=== PATIENT | male | born 1975 ===

== ENCOUNTER 2017-08-29 09:05 | Observation (INO) | payer MEDICAID ==
[2017-08-29 09:10] VITALS: BMI 32.5
[2017-08-29] MEDS ORDERED: Sodium Chloride 0.9% 1,000 ML IV STA (09:19)
--- NOTE | 2017-08-29 09:32 | ED PDOC ---
Syncope/Near Syncope/Dizziness Time Seen by Provider: 08/29/17 09:07 Chief Complaint (Nursing): Trauma Chief Complaint (Provider): Syncope History Per: Patient History/Exam Limitations: no limitations Onset/Duration Of Symptoms: Hrs (SLPS) Current Symptoms Are (Timing): Still Present Number Of Syncopal Episodes: 2 Activity At Onset Of Symptoms: Standing Associated Symptoms Preceding Syncopal Episode: No Predromal Symptoms (Sudden Onset) Seizure Or Post-ictal Symptoms: None Possible Causative Factor(s): New Medications Fall Associated With With Symptoms: Positive Injury Additional Complaint(s): Odell Marie is a 42 year old male, with a past medical history of anxiety, depression, BPH and pre-diabetes, who was brought to the emergency department via EMS for evaluation of fall injuries and dizziness s/p syncopal episodes prior to arrival. Patient reports he was seen yesterday by MD for insomnia and was prescribed Trazodone. Patient states he took the medicine last night but was not able to fall asleep until 7am. He woke up a couple of hours after and was having a conversation outside with someone when he suddenly fainted injuring his lips and right knee. Patient reports he got up and went inside to his mother when he suddenly fainted again. Patient states he felt normal before syncopal episode. He also reports a headache but is unsure if its from the medication or fall. He denies any fever, chills, shortness of breath, vision changes, chest pain, abdominal pain, vomit, diarrhea, back pain, numbness or tingling, weakness or other medical complaints. PMD: Lazara Batres Currently seeing: Dr. Ayad William Past Medical History Reviewed: Historical Data, Nursing Documentation, Vital Signs Vital Signs: Last Vital Signs Temp 97.1 F L 08/29/17 09:09 Pulse 76 08/29/17 09:09 Resp 17 08/29/17 09:19 BP 117/73 08/29/17 09:09 Pulse Ox 96 08/29/17 09:09 - Medical History PMH: Anxiety, Benign Prostatic Hyperplasia, Depression, Diabetes (pre-DM) - Surgical History Surgical History: No Surg Hx - Family History Family History: States: Unknown Family Hx - Social History Current smoker - smoking cessation education provided: No Alcohol: None Drugs: Denies - Allergies Allergies/Adverse Reactions: Allergies Allergy/AdvReac Type Severity Reaction Status Date / Time No Known Allergies Allergy Verified 08/29/17 09:14 Review of Systems ROS Statement: Except As Marked, All Systems Reviewed And Found Negative Constitutional: Negative for: Fever, Chills ENT: Positive for: Other (lip injuries) Cardiovascular: Negative for: Chest Pain Respiratory: Negative for: Shortness of Breath Gastrointestinal: Negative for: Vomiting, Abdominal Pain, Diarrhea Musculoskeletal: Positive for: Leg Pain (right knee injury). Negative for: Back Pain Neurological: Positive for: Headache, Dizziness. Negative for: Weakness, Numbness (tingling) Physical Exam - Reviewed Nursing Documentation Reviewed: Yes Vital Signs Reviewed: Yes - Physical Exam Appears: Positive for: Non-toxic Head Exam: Positive for: ATRAUMATIC, NORMOCEPHALIC Skin: Positive for: Normal Color, Warm, Dry Eye Exam: Positive for: Normal appearance, EOMI, PERRL ENT: Positive for: Other (Multiple missing teeth. Chipped fake teeth frontal left. Upper and lower lip abrasions at middle.) Neck: Positive for: Painless ROM, Supple Cardiovascular/Chest: Positive for: Regular Rate, Rhythm. Negative for: Murmur Respiratory: Positive for: Normal Breath Sounds. Negative for: Respiratory Distress Gastrointestinal/Abdominal: Positive for: Normal Exam, Soft. Negative for: Tenderness, Guarding, Rebound Back: Positive for: Normal Inspection. Negative for: L CVA Tenderness, R CVA Tenderness, Vertebral Tenderness Extremity: Positive for: Normal ROM (upper and lower extremities), Other ( anterior right knee abrasion. ). Negative for: Pedal Edema, Deformity (or laxity to right knee), Swelling (right knee) Neurologic/Psych: Positive for: Alert, tiller worker II-XII, Oriented. Negative for: Motor/Sensory Deficits, Aphasia, Facial Droop - Laboratory Results Result Diagrams: 08/29/17 09:40 08/29/17 09:40 Interpretation Of Abn Labs: no acute - ECG ECG: Positive for: Interpreted By Me, Viewed By Me ECG Rhythm: Positive for: Normal QRS, Normal ST Segment, Sinus Rhythm O2 Sat by Pulse Oximetry: 96 (RA) Pulse Ox Interpretation: Normal - Radiology X-Ray: Read By Radiologist X-Ray Interpretation: Fracture (possible fx knee) - CT Scan/US ct Other Rad Studies (CT/US): Read By Radiologist Other Rad Interpretation: no acute - Progress ED Course And Treament: 1223: Stable. Spoke with [facility] resident. Will admit for multiple syncope episodes. Will ct knee for further evaluation of possible fx. Medical Decision Making Medical Decision Making: Time: 09:07 Initial Impression: fall injuries s/p syncope Initial Plan: --Cervical spine w/o contrast [CT] --Head w/o contrast [CT] --Maxillofacial w/o contrast [CT] --EKG --CMP --Troponin I --CBC w/ differential --PTT --PT --Knee 4 or more views Bi [RAD] --Tylenol 325mg tab 650 mg PO --Sodium Chloride 1,000 ml IV 1,000 mls/hr --Reevaluation 10:[address] FINDINGS: HEMORRHAGE: No intracranial hemorrhage. BRAIN: No mass effect or edema. No atrophy or chronic microvascular ischemic changes. VENTRICLES: Unremarkable. No hydrocephalus. CALVARIUM: Unremarkable. PARANASAL SINUSES: Unremarkable as visualized. No significant inflammatory changes. MASTOID AIR CELLS: Unremarkable as visualized. No inflammatory changes. OTHER FINDINGS: None. IMPRESSION: No acute intracranial hemorrhage. 10:37 Knee X-Ray FINDINGS: There is a sclerotic linear density appreciated at the medial to the inferior to the medial tibial plateau which may reflect chronic impacted fracture though this is not definite. The etiology here is unclear. This could be an acute finding if the patient complains of asymmetric pain in this area. Clinically correlate further. No subluxation or dislocation appreciated. No destructive bony lesion bilaterally. Local soft tissues appear unremarkable bilaterally and there is no evidence to suggest suprasellar bursa effusion either knee. IMPRESSION: Sclerotic density medial tibial plateau within the metaphysis/ epiphysis region of uncertain origin. Consider possible chronic healed fracture no acute fractures not completely excluded. Clinically correlate further. MRI can be performed if clinically warranted. 11:[address] FINDINGS: NASAL BONES: Unremarkable. No evidence of acute nasal bone fractures. There is very mild rightward deviation of the nasal septum likely due to asymmetric prominence of the left inferior turbinate compared to the right side. There is also small site rc bullosa. ORBITS: Orbits and contents unremarkable. Globes intact and lenses appropriately located. There are no retrobulbar masses or collections. PARANASAL SINUSES/ MASTOIDS: No evidence of acute or significant chronic sinusitis. MAXILLA: Unremarkable. MANDIBLE/ TEMPOROMANDIBULAR JOINTS: Unremarkable. SKULL BASE: Unremarkable. TEMPORAL BONES: Middle ears and mastoid grossly unremarkable. OTHER FINDINGS: None. IMPRESSION: Unremarkable non contrast enhanced CT of the maxillofacial bones. 11:[address] FINDINGS: VERTEBRAE: No fracture. Normal alignment. No destructive bony lesion. DISCS/SPINAL CANAL/NEURAL FORAMINA: Disc space heights are relatively maintained small marginal anterior and tiny posterior osteophytes are seen at several levels. At the C5-C6 level, there is small central and bilateral disc bulge flattens the ventral surface of the thecal sac though does not cause significant canal compromise. Exit foramina adequate. . There is also a small linear calcification along the at anterior margin of the annulus at this level. At the C6-C7 level, there is adequate disc height. Small posterior osteophytic ridge disc bulge complex slightly asymmetrically more prominent on the right compared the left. Central canal appears adequate. Exit foramina also adequate the right and marginal to adequate on the left. . The remaining levels demonstrate no evidence of disc herniation or significant disc bulge. Central canal and exit foramina adequate. Note made of small of posterior the near the spinous process ease of the C4 and C7 segments. PARASPINAL SOFT TISSUES: Unremarkable. OTHER FINDINGS: None. IMPRESSION: No evidence of acute fractures. Minor degenerative spondylosis without significant canal stenosis. ----- Scribe Attestation: Documented by Milton Parkinson, acting as a scribe for Misael Louie MD. Provider Scribe Attestation: All medical record entries made by the Scribe were at my direction and personally dictated by me. I have reviewed the chart and agree that the record accurately reflects my personal performance of the history, physical exam, medical decision making, and the department course for this patient. I have also personally directed, reviewed, and agree with the discharge instructions and disposition. Disposition - Clinical Impression Clinical Impression: Syncope, Knee injury - Patient ED Disposition Is Patient to be Admitted: Yes Counseled Patient/Family Regarding: Studies Performed, Diagnosis - Disposition Disposition Time: 11:24 Condition: FAIR - Pt Status Changed To: Hospital Disposition Of: Observation - POA Present On Arrival: Falls Or Trauma
[2017-08-29 10:05] LABS: BASO # 0.1 K/uL (0.0-0.2); BASO % 0.7 % (0.0-2.0); EOS # 0.3 K/uL (0.0-0.7); EOS % 4.2 % (0.0-4.0); HEMOGLOBIN 13.8 g/dL (12.0-18.0); LYMPH # 2.1 K/uL (1.0-4.3); LYMPH % 25.8 % (20.0-40.0); MEAN CELL VOLUME 83.8 fl (80.0-94.0); MEAN CORPUSCULAR HEMOGLOBIN 27.4 pg (27.0-31.0); MEAN CORPUSCULAR HGB CONC 32.7 g/dL (33.0-37.0); MEAN PLATELET VOLUME 9.1 fl (7.2-11.7); MONO # 0.7 K/uL (0.0-0.8); MONO % 8.3 % (0.0-10.0); RBC 5.03 Mil/uL (4.40-5.90); RED CELL DISTRIBUTION WIDTH 14.7 % (11.5-14.5); WHITE BLOOD COUNT 8.2 K/uL (4.8-10.8)
[2017-08-29 10:06] LABS: ALB/GLOB RATIO 1.3 (1.0-2.1); ALBUMIN 4.4 g/dL (3.5-5.0); ALT/SGPT 35 U/L (21-72); AST/SGOT 24 U/L (17-59); BLOOD UREA NITROGEN 11 mg/dl (9-20); CALCIUM 9.4 mg/dL (8.4-10.2); GFR AFRICAN-AMERICAN > 60; GFR NON-AFRICAN AMERICAN > 60
[2017-08-29 10:11] LABS: INR 1.2 (0.9-1.2); PARTIAL THROMBOPLASTIN TIME 30.3 Seconds (25.6-37.1); PROTHROMBIN TIME 13.3 Seconds (9.8-13.1)
--- NOTE | 2017-08-29 10:21 | CT ---
PROCEDURE: CT HEAD WITHOUT CONTRAST. HISTORY: Headache. . COMPARISON: None available. TECHNIQUE: Axial computed tomography images were obtained through the head/brain without intravenous contrast. Radiation dose: Total exam DLP = 839.26 mGy-cm. This CT exam was performed using one or more of the following dose reduction techniques: Automated exposure control, adjustment of the mA and/or kV according to patient size, and/or use of iterative reconstruction technique. FINDINGS: HEMORRHAGE: No intracranial hemorrhage. BRAIN: No mass effect or edema. No atrophy or chronic microvascular ischemic changes. VENTRICLES: Unremarkable. No hydrocephalus. CALVARIUM: Unremarkable. PARANASAL SINUSES: Unremarkable as visualized. No significant inflammatory changes. MASTOID AIR CELLS: Unremarkable as visualized. No inflammatory changes. OTHER FINDINGS: None. IMPRESSION: No acute intracranial hemorrhage.
--- NOTE | 2017-08-29 10:39 | RAD ---
PROCEDURE: Bilateral Knee Radiographs HISTORY: pain COMPARISON: None available. TECHNIQUE: AP lateral and oblique views of the bilateral knees have been submitted including sunrise views. FINDINGS: There is a sclerotic linear density appreciated at the medial to the inferior to the medial tibial plateau which may reflect chronic impacted fracture though this is not definite. The etiology here is unclear. This could be an acute finding if the patient complains of asymmetric pain in this area. Clinically correlate further. No subluxation or dislocation appreciated. No destructive bony lesion bilaterally. Local soft tissues appear unremarkable bilaterally and there is no evidence to suggest suprasellar bursa effusion either knee. IMPRESSION: Sclerotic density medial tibial plateau within the metaphysis/ epiphysis region of uncertain origin. Consider possible chronic healed fracture no acute fractures not completely excluded. Clinically correlate further. MRI can be performed if clinically warranted.
--- NOTE | 2017-08-29 11:03 | CT ---
PROCEDURE: CT MAXILLOFACIAL BONES WITHOUT CONTRAST HISTORY: Facial pain COMPARISON: Comparison made with concurrent CT scan brain TECHNIQUE: Contiguous axial CT images of the maxillofacial bones were obtained. Coronal and sagittal reformats were generated. Radiation dose: Total exam DLP = 1370.76 mGy-cm. This CT exam was performed using one or more of the following dose reduction techniques: Automated exposure control, adjustment of the mA and/or kV according to patient size, and/or use of iterative reconstruction technique. FINDINGS: NASAL BONES: Unremarkable. No evidence of acute nasal bone fractures. There is very mild rightward deviation of the nasal septum likely due to asymmetric prominence of the left inferior turbinate compared to the right side. There is also small site rc bullosa. ORBITS: Orbits and contents unremarkable. Globes intact and lenses appropriately located. There are no retrobulbar masses or collections. PARANASAL SINUSES/ MASTOIDS: No evidence of acute or significant chronic sinusitis. MAXILLA: Unremarkable. MANDIBLE/ TEMPOROMANDIBULAR JOINTS: Unremarkable. SKULL BASE: Unremarkable. TEMPORAL BONES: Middle ears and mastoid grossly unremarkable. OTHER FINDINGS: None. IMPRESSION: Unremarkable non contrast enhanced CT of the maxillofacial bones.
--- NOTE | 2017-08-29 11:13 | CT ---
PROCEDURE: CT Cervical Spine without contrast HISTORY: Neck pain COMPARISON: None available. TECHNIQUE: Axial computed tomography images were obtained of the cervical spine without the use of intravenous contrast. Coronal and sagittal reformatted images were created and reviewed. Radiation dose: Total exam DLP = 1370.76 mGy-cm. This CT exam was performed using one or more of the following dose reduction techniques: Automated exposure control, adjustment of the mA and/or kV according to patient size, and/or use of iterative reconstruction technique. FINDINGS: VERTEBRAE: No fracture. Normal alignment. No destructive bony lesion. DISCS/SPINAL CANAL/NEURAL FORAMINA: Disc space heights are relatively maintained small marginal anterior and tiny posterior osteophytes are seen at several levels. At the C5-C6 level, there is small central and bilateral disc bulge flattens the ventral surface of the thecal sac though does not cause significant canal compromise. Exit foramina adequate. . There is also a small linear calcification along the at anterior margin of the annulus at this level. At the C6-C7 level, there is adequate disc height. Small posterior osteophytic ridge disc bulge complex slightly asymmetrically more prominent on the right compared the left. Central canal appears adequate. Exit foramina also adequate the right and marginal to adequate on the left. . The remaining levels demonstrate no evidence of disc herniation or significant disc bulge. Central canal and exit foramina adequate. Note made of small of posterior the near the spinous process ease of the C4 and C7 segments. PARASPINAL SOFT TISSUES: Unremarkable. OTHER FINDINGS: None. IMPRESSION: No evidence of acute fractures. Minor degenerative spondylosis without significant canal stenosis.
[2017-08-29] MEDS ORDERED: Naproxen 500 MG TAB PO PRN (13:41)
--- NOTE | 2017-08-29 13:57 | CARD ---
APPROVED REPORT EKG Measurement Heart [id number] [place] [id number] <Conclusion> Normal sinus rhythm Normal ECG
--- NOTE | 2017-08-29 13:59 | CP.PCM.HP ---
Addendum entered and electronically signed by Crista Chiu MD 08/29/17 17:26: Smoking abuse -nicotine patch Original Note: <Crista Chiu - Last Filed: 08/29/17 16:14> History of Present Illness - History of Present Illness History of Present Illness: CC: "I passed out" HPI: 42 YO Male with PMHx of depression, anxiety and BPH presents to [facility] ED after syncopal episode. Pt states that he was seen by Srini De Luna yesterday after experiencing 2 weeks of insomnia (2-3 hrs of sleep a day). Pt was prescribed Trazadone 50mg HS, which he took (around 11PM) along with the tamsulosin and fell asleep around 7AM this morning. Around 8AM, pt was suddenly woken up by his father to answer the doorbell. Pt woke up, walked to his door, was talking to the mailman when he suddenly passed out. Episode was witnessed, pt fall facing forward, hit his face and broke his artificial teeth. 20 mins after the first episode, pt was talking to his mother when he passed out and found himself sitting. These episodes lasted a few seconds. No tremors in upper or lower extremities noted, no urinary or fecal incontinence, no eye rolling, no tongue biting and was not post-ictal. No similar episodes in the past. Denies chest pain, dyspnea, palpitations, n/v/d/c, dysuria, urinary frequency, chills, fever, weight loss/gain. PMD: [facility]- last visit with Colin De Luna on 08/28/17 PMH: depression, anxiety and BPH SurgH: R ankle surgery, cholecystectomy SH: 25 year smoking hx, quit 4 days ago and restarted 2 weeks ago due to anxiety FH: hx of HTN and DM both mother and father's side of family; hx of lung cancer. Allergies: NKDA Meds: Sertraline HCl 50 MG Tablet 1.5 tablets Orally Once a day BusPIRone HCl 5 MG Tablet 1 tablet Orally Three times a day Tamsulosin HCl 0.4 MG Capsule 1 capsule Orally Once a day Naproxen 500 BID ED Course: Vitals: T98.4, BP123/55, HR62, RR18, O2 98% in RA Labs: 8.2>13.8/42.2<233 141/3.7, 102/26, 11/10.6< 108 PT/INR/PTT 13.3/1.2/30.3 Trops x 1 neg Imaging: EKG: Normal sinus rhythm with rate of 69, QTc 411, no acute ST changes CT head: no acute intracranial findings CT spine: no acute findings Maxifaical CT: no acute findings R Knee XR: chronic healed fracture, acute fx not completely excluded Lower extremity CT R pending Meds: tylenol 650mg, NS 1L Present on Admission - Present on Admission Any Indicators Present on Admission: No Review of Systems - Constitutional Constitutional: absent: Chills, Headache, Weight Gain, Weight Loss - EENT Eyes: absent: Blurred Vision Additional comments: mouth pain - Cardiovascular Cardiovascular: absent: Chest Pain, Irregular Heart Rhythm - Respiratory Respiratory: absent: Cough, Dyspnea - Gastrointestinal Gastrointestinal: absent: Abdominal Pain, Constipation, Cramping, Diarrhea - Genitourinary Genitourinary: absent: Change in Urinary Stream, Difficulty Urinating, Dysuria - Musculoskeletal Additional comments: R knee pain - Neurological Neurological: Syncope (x 2). absent: Headaches, Tremor, Vertigo - Psychiatric Psychiatric: Anxiety, Depression Past Patient History - Past Social History Smoking Status: Heavy Smoker > 10 Cigarettes Daily Alcohol: None Drugs: Denies Home Situation {Lives}: With Family - GENITOURINARY/GYNECOLOGICAL Hx Genitourinary Disorders: Yes Other/Comment: enlarged prostate - PSYCHIATRIC Hx Anxiety: Yes Hx Depression: Yes - SURGICAL HISTORY Hx Surgeries: No - ANESTHESIA Hx Anesthesia: No Meds Allergies/Adverse Reactions: Allergies Allergy/AdvReac Type Severity Reaction Status Date / Time No Known Allergies Allergy Verified 08/29/17 09:14 Physical Exam - Constitutional Appears: No Acute Distress, Other (abrasions in the jodee-oral area) - Head Exam Head Exam: NORMAL INSPECTION Additional comments: Dentures in place; upper incisors L side teeth are broken (2) - Eye Exam Eye Exam: EOMI, Normal appearance, PERRL - ENT Exam ENT Exam: Mucous Membranes Moist - Neck Exam Neck exam: Positive for: Full Rom - Respiratory Exam Respiratory Exam: Clear to Auscultation Bilateral, NORMAL BREATHING PATTERN. absent: Rhonchi, Wheezes - Cardiovascular Exam Cardiovascular Exam: REGULAR RHYTHM, +S1, +S2 Additional comments: Orth stats (R side) BP 104/68 Sitting BP 110/74 Supine BP 104/70 Standing - GI/Abdominal Exam GI & Abdominal Exam: Normal Bowel Sounds, Soft. absent: Distended, Tenderness Additional comments: old geoffrey scar, well healed - Extremities Exam Extremities exam: Positive for: full ROM, normal inspection. Negative for: calf tenderness, pedal edema Additional comments: Small abrasion in the R knee Old healed scar in R ankle - Back Exam Back exam: NORMAL INSPECTION - Neurological Exam Neurological exam: Alert, CN II-XII Intact, Normal Gait, Oriented x3 Additional comments: Sensory motor intact b/l in the upper and lower extremities strength intact in the upper and lower extremities - Psychiatric Exam Psychiatric exam: Anxious Results - Vital Signs Recent Vital Signs: Last Vital Signs Temp 97.1 F L 08/29/17 09:09 Pulse 76 08/29/17 09:09 Resp 17 08/29/17 09:19 BP 117/73 08/29/17 09:09 Pulse Ox 96 08/29/17 12:25 - Labs Result Diagrams: 08/29/17 09:40 08/29/17 09:40 Labs: Laboratory Results - last 24 hr 08/29/17 08/29/17 08/29/17 09:40 09:40 09:40 WBC 8.2 RBC 5.03 Hgb 13.8 Hct 42.2 MCV 83.8 MCH 27.4 MCHC 32.7 L RDW 14.7 H Plt Count 233 MPV 9.1 Neut % (Auto) 61.0 Lymph % (Auto) 25.8 Coles % (Auto) 8.3 Eos % (Auto) 4.2 H Baso % (Auto) 0.7 Neut # (Auto) 5.0 Lymph # (Auto) 2.1 Coles # (Auto) 0.7 Eos # (Auto) 0.3 Baso # (Auto) 0.1 PT 13.3 H INR 1.2 APTT 30.3 Sodium 141 Potassium 3.7 Chloride 102 Carbon Dioxide 26 Anion Gap 17 BUN 11 Creatinine 0.6 L Est GFR ( Amer) > 60 Est GFR (Non-Af Amer) > 60 Random Glucose 108 Calcium 9.4 Total Bilirubin 1.3 AST 24 ALT 35 Alkaline Phosphatase 67 Troponin I < 0.0120 Total Protein 7.8 Albumin 4.4 Globulin 3.4 Albumin/Globulin Ratio 1.3 Assessment & Plan - Assessment and Plan (Free Text) Assessment: Assessment/Plan: 42 YO Male with PMHx of depression, anxiety and BPH is admitted for syncopal episodes. Syncope -likely iatrogenic due to new med; with components of sleep depravation -2/2 to Trazadone, and flomax both which are known to cause hypotension -seizures, cardiovascular origin less likely -EKG wnl, trops neg -CT head no acute findings -UDS pending -cont to monitor in telemetry, neuro checks R knee pain -chronic, stable x 1 month -no hx of trauma per pt -c/w naproxen -XR of knee; R Knee XR: chronic healed fracture, acute fx not completely excluded -CT of RLE pending -outpatient referral to PT and ortho given last visit with PMD BPH -chronic, stable -will hold Tamsulosin for now Depression/Anxiety -chronic -c/w home meds Dvt Prophyx -Lovenox SC <Dianne Valverde - Last Filed: 08/30/17 08:04> Results - Vital Signs Recent Vital Signs: Last Vital Signs Temp 98.5 F 08/30/17 05:11 Pulse 53 L 08/30/17 05:11 Resp 18 08/30/17 05:11 BP 102/63 08/30/17 05:11 Pulse Ox 97 08/30/17 05:11 - Labs Result Diagrams: 08/29/17 09:40 08/29/17 09:40 Labs: Laboratory Results - last 24 hr 08/29/17 08/29/17 08/29/17 09:40 09:40 09:40 WBC 8.2 RBC 5.03 Hgb 13.8 Hct 42.2 MCV 83.8 MCH 27.4 MCHC 32.7 L RDW 14.7 H Plt Count 233 MPV 9.1 Neut % (Auto) 61.0 Lymph % (Auto) 25.8 Coles % (Auto) 8.3 Eos % (Auto) 4.2 H Baso % (Auto) 0.7 Neut # (Auto) 5.0 Lymph # (Auto) 2.1 Coles # (Auto) 0.7 Eos # (Auto) 0.3 Baso # (Auto) 0.1 PT 13.3 H INR 1.2 APTT 30.3 Sodium 141 Potassium 3.7 Chloride 102 Carbon Dioxide 26 Anion Gap 17 BUN 11 Creatinine 0.6 L Est GFR ( Amer) > 60 Est GFR (Non-Af Amer) > 60 Random Glucose 108 Calcium 9.4 Total Bilirubin 1.3 AST 24 ALT 35 Alkaline Phosphatase 67 Troponin I < 0.0120 Total Protein 7.8 Albumin 4.4 Globulin 3.4 Albumin/Globulin Ratio 1.3 Urine Opiates Screen Urine Methadone Screen Ur Barbiturates Screen Ur Phencyclidine Scrn Ur Amphetamines Screen U Benzodiazepines Scrn U Oth Cocaine Metabols U Cannabinoids Screen 08/29/17 17:10 WBC RBC Hgb Hct MCV MCH MCHC RDW Plt Count MPV Neut % (Auto) Lymph % (Auto) Coles % (Auto) Eos % (Auto) Baso % (Auto) Neut # (Auto) Lymph # (Auto) Coles # (Auto) Eos # (Auto) Baso # (Auto) PT INR APTT Sodium Potassium Chloride Carbon Dioxide Anion Gap BUN Creatinine Est GFR ( Amer) Est GFR (Non-Af Amer) Random Glucose Calcium Total Bilirubin AST ALT Alkaline Phosphatase Troponin I Total Protein Albumin Globulin Albumin/Globulin Ratio Urine Opiates Screen Negative Urine Methadone Screen Negative Ur Barbiturates Screen Negative Ur Phencyclidine Scrn Negative Ur Amphetamines Screen Negative U Benzodiazepines Scrn Negative U Oth Cocaine Metabols Negative U Cannabinoids Screen Negative Attending/Attestation - Attestation I have personally seen and examined this patient.: Yes I have fully participated in the care of the patient.: Yes I have reviewed all pertinent clinical information: Yes
--- NOTE | 2017-08-29 16:01 | CT ---
PROCEDURE: RIGHT KNEE CT WITHOUT CONTRAST HISTORY: pain and possible fx on x-ray COMPARISON: Bilateral knee radiographs 08/21/2017. TECHNIQUE: A volumetric CT acquisition was performed through the right knee with multiplanar reformatted datasets provided by separate series FINDINGS: There is stress fracture of the medial epiphysis medially inferior to the level of the medial right tibial plateau. Cortical discontinuity is appreciate the medial margins of the stress fracture. Surrounding osseous elements are unremarkable around this fracture with no articular component related. No subluxation or dislocation appreciated. No prominent joint effusion or suprapatellar bursa effusion appreciable. Anterior and posterior muscle compartments appear unremarkable as imaged. No subluxation or dislocation. IMPRESSION: Stress fracture medial proximal right tibia, non articular. The findings concordant with radiographic finding at the the right knee radiographic images 08/29/2017.
[2017-08-29] MEDS: Naproxen 500 MG TAB PO PRN (16:27)
[2017-08-29 17:54] LABS: BARBITURATES, UR NEGATIVE (NEGATIVE); BENZODIAZEPINES, UR NEGATIVE (NEGATIVE); OPIATES, UR NEGATIVE (NEGATIVE); PHENCYCLIDINE, UR NEGATIVE (NEGATIVE)
[2017-08-30 00:10] VITALS: RESP 18
[2017-08-30] MEDS: Naproxen 500 MG TAB PO PRN (08:33)
[2017-08-30] MEDS ORDERED: Enoxaparin 40 mg Syringe SC SCH (09:00)
--- NOTE | 2017-08-30 10:45 | CP.PCM.DIS ---
<Crista Chiu - Last Filed: 08/30/17 14:57> Provider - Provider Date of Admission: 08/29/17 12:25 Attending physician: Esme Seals MD Time Spent in preparation of Discharge (in minutes): 30 Diagnosis - Discharge Diagnosis (1) Syncope Status: Acute (2) Knee injury Status: Chronic Hospital Course - Lab Results Lab Results: Most Recent Lab Values WBC 8.2 K/uL (4.8-10.8) 08/29/17 09:40 RBC 5.03 Mil/uL (4.40-5.90) 08/29/17 09:40 Hgb 13.8 g/dL (12.0-18.0) 08/29/17 09:40 Hct 42.2 % (35.0-51.0) 08/29/17 09:40 MCV 83.8 fl (80.0-94.0) 08/29/17 09:40 MCH 27.4 pg (27.0-31.0) 08/29/17 09:40 MCHC 32.7 g/dL (33.0-37.0) L 08/29/17 09:40 RDW 14.7 % (11.5-14.5) H 08/29/17 09:40 Plt Count 233 K/uL (130-400) 08/29/17 09:40 MPV 9.1 fl (7.2-11.7) 08/29/17 09:40 Neut % (Auto) 61.0 % (50.0-75.0) 08/29/17 09:40 Lymph % (Auto) 25.8 % (20.0-40.0) 08/29/17 09:40 [place] % (Auto) 8.3 % (0.0-10.0) 08/29/17 09:40 Eos % (Auto) 4.2 % (0.0-4.0) H 08/29/17 09:40 Baso % (Auto) 0.7 % (0.0-2.0) 08/29/17 09:40 Neut # (Auto) 5.0 K/uL (1.8-7.0) 08/29/17 09:40 Lymph # (Auto) 2.1 K/uL (1.0-4.3) 08/29/17 09:40 [place] # (Auto) 0.7 K/uL (0.0-0.8) 08/29/17 09:40 Eos # (Auto) 0.3 K/uL (0.0-0.7) 08/29/17 09:40 Baso # (Auto) 0.1 K/uL (0.0-0.2) 08/29/17 09:40 PT 13.3 Seconds (9.8-13.1) H 08/29/17 09:40 INR 1.2 (0.9-1.2) 08/29/17 09:40 APTT 30.3 Seconds (25.6-37.1) 08/29/17 09:40 Sodium 141 mmol/l (132-148) 08/29/17 09:40 Potassium 3.7 MMOL/L (3.6-5.0) 08/29/17 09:40 Chloride 102 mmol/L (98-107) 08/29/17 09:40 Carbon Dioxide 26 mmol/L (22-30) 08/29/17 09:40 Anion Gap 17 (10-20) 08/29/17 09:40 BUN 11 mg/dl (9-20) 08/29/17 09:40 Creatinine 0.6 mg/dl (0.8-1.5) L 08/29/17 09:40 Est GFR ( Amer) > 60 08/29/17 09:40 Est GFR (Non-Af Amer) > 60 08/29/17 09:40 Random Glucose 108 mg/dL (75-110) 08/29/17 09:40 Calcium 9.4 mg/dL (8.4-10.2) 08/29/17 09:40 Total Bilirubin 1.3 mg/dl (0.2-1.3) 08/29/17 09:40 AST 24 U/L (17-59) 08/29/17 09:40 ALT 35 U/L (21-72) 08/29/17 09:40 Alkaline Phosphatase 67 U/L (38-126) 08/29/17 09:40 Troponin I < 0.0120 ng/mL (0.00-0.120) 08/29/17 09:40 Total Protein 7.8 G/DL (6.3-8.2) 08/29/17 09:40 Albumin 4.4 g/dL (3.5-5.0) 08/29/17 09:40 Globulin 3.4 gm/dL (2.2-3.9) 08/29/17 09:40 Albumin/Globulin Ratio 1.3 (1.0-2.1) 08/29/17 09:40 Urine Opiates Screen Negative (NEGATIVE) 08/29/17 17:10 Urine Methadone Screen Negative (NEGATIVE) 08/29/17 17:10 Ur Barbiturates Screen Negative (NEGATIVE) 08/29/17 17:10 Ur Phencyclidine Scrn Negative (NEGATIVE) 08/29/17 17:10 Ur Amphetamines Screen Negative (NEGATIVE) 08/29/17 17:10 U Benzodiazepines Scrn Negative (NEGATIVE) 08/29/17 17:10 U Oth Cocaine Metabols Negative (NEGATIVE) 08/29/17 17:10 U Cannabinoids Screen Negative (NEGATIVE) 08/29/17 17:10 - Hospital Course Hospital Course: 42 YO Male with PMHx of depression, anxiety and BPH is admitted for syncopal episodes and R knee pain. Pt had 2x episode of syncope after starting a new medication, Trazadone. Medication was discontinued, and labs and imaging has all been negative for any acute findings. Pt was kept in tele monitoring overnight and no cardiac events were noted. Additionally, per pt R knee pain has been chronic, x 3 months, with no hx of trauma. Pt ambulating, no edema or erythema on knee and has apt with Ortho on 09/13/17 and has rx for outpatient PT. Will d/c pt home with follow up win [facility] on 09/16/17. Meds: STOP Trazadone 50mg HS Discharge Exam - Head Exam Head Exam: NORMAL INSPECTION - Eye Exam Eye Exam: EOMI, Normal appearance - ENT Exam ENT Exam: Mucous Membranes Moist - Respiratory Exam Respiratory Exam: Clear to PA & Lateral, NORMAL BREATHING PATTERN. absent: Wheezes - Cardiovascular Exam Cardiovascular Exam: REGULAR RHYTHM, +S1, +S2 - GI/Abdominal Exam GI & Abdominal Exam: Normal Bowel Sounds, Soft. absent: Tenderness - Extremities Exam Extremities exam: normal inspection Additional comments: Full ROM of the RLE and LLE There is no associated swelling or erythema in the RLE No pain on palpation of R knee - Back Exam Back exam: NORMAL INSPECTION - Neurological Exam Neurological exam: Alert, CN II-XII Intact, Oriented x3 - Psychiatric Exam Psychiatric exam: Normal Affect, Normal Mood - Skin Skin Exam: Dry, Intact Discharge Plan - Follow Up Plan Condition: FAIR Disposition: HOME/ ROUTINE Patient education suggested?: Yes Instructions: Syncope (Fainting) (DC), Syncope (DC), Syncope (GEN) Additional Instructions: Follow up [facility] on 09/16/17 @1:00PM Please follow up with Srini De Luna in 1 week Follow up with ortho on 09/13/17 and PT <Dianne Valverde - Last Filed: 08/31/17 09:02> Provider - Provider Date of Admission: 08/29/17 12:25 Attending physician: Esme Seals MD Hospital Course - Lab Results Lab Results: Most Recent Lab Values WBC 8.2 K/uL (4.8-10.8) 08/29/17 09:40 RBC 5.03 Mil/uL (4.40-5.90) 08/29/17 09:40 Hgb 13.8 g/dL (12.0-18.0) 08/29/17 09:40 Hct 42.2 % (35.0-51.0) 08/29/17 09:40 MCV 83.8 fl (80.0-94.0) 08/29/17 09:40 MCH 27.4 pg (27.0-31.0) 08/29/17 09:40 MCHC 32.7 g/dL (33.0-37.0) L 08/29/17 09:40 RDW 14.7 % (11.5-14.5) H 08/29/17 09:40 Plt Count 233 K/uL (130-400) 08/29/17 09:40 MPV 9.1 fl (7.2-11.7) 08/29/17 09:40 Neut % (Auto) 61.0 % (50.0-75.0) 08/29/17 09:40 Lymph % (Auto) 25.8 % (20.0-40.0) 08/29/17 09:40 [place] % (Auto) 8.3 % (0.0-10.0) 08/29/17 09:40 Eos % (Auto) 4.2 % (0.0-4.0) H 08/29/17 09:40 Baso % (Auto) 0.7 % (0.0-2.0) 08/29/17 09:40 Neut # (Auto) 5.0 K/uL (1.8-7.0) 08/29/17 09:40 Lymph # (Auto) 2.1 K/uL (1.0-4.3) 08/29/17 09:40 [place] # (Auto) 0.7 K/uL (0.0-0.8) 08/29/17 09:40 Eos # (Auto) 0.3 K/uL (0.0-0.7) 08/29/17 09:40 Baso # (Auto) 0.1 K/uL (0.0-0.2) 08/29/17 09:40 PT 13.3 Seconds (9.8-13.1) H 08/29/17 09:40 INR 1.2 (0.9-1.2) 08/29/17 09:40 APTT 30.3 Seconds (25.6-37.1) 08/29/17 09:40 Sodium 141 mmol/l (132-148) 08/29/17 09:40 Potassium 3.7 MMOL/L (3.6-5.0) 08/29/17 09:40 Chloride 102 mmol/L (98-107) 08/29/17 09:40 Carbon Dioxide 26 mmol/L (22-30) 08/29/17 09:40 Anion Gap 17 (10-20) 08/29/17 09:40 BUN 11 mg/dl (9-20) 08/29/17 09:40 Creatinine 0.6 mg/dl (0.8-1.5) L 08/29/17 09:40 Est GFR ( Amer) > 60 08/29/17 09:40 Est GFR (Non-Af Amer) > 60 08/29/17 09:40 Random Glucose 108 mg/dL (75-110) 08/29/17 09:40 Calcium 9.4 mg/dL (8.4-10.2) 08/29/17 09:40 Total Bilirubin 1.3 mg/dl (0.2-1.3) 08/29/17 09:40 AST 24 U/L (17-59) 08/29/17 09:40 ALT 35 U/L (21-72) 08/29/17 09:40 Alkaline Phosphatase 67 U/L (38-126) 08/29/17 09:40 Troponin I < 0.0120 ng/mL (0.00-0.120) 08/30/17 12:40 Total Protein 7.8 G/DL (6.3-8.2) 08/29/17 09:40 Albumin 4.4 g/dL (3.5-5.0) 08/29/17 09:40 Globulin 3.4 gm/dL (2.2-3.9) 08/29/17 09:40 Albumin/Globulin Ratio 1.3 (1.0-2.1) 08/29/17 09:40 Urine Opiates Screen Negative (NEGATIVE) 08/29/17 17:10 Urine Methadone Screen Negative (NEGATIVE) 08/29/17 17:10 Ur Barbiturates Screen Negative (NEGATIVE) 08/29/17 17:10 Ur Phencyclidine Scrn Negative (NEGATIVE) 08/29/17 17:10 Ur Amphetamines Screen Negative (NEGATIVE) 08/29/17 17:10 U Benzodiazepines Scrn Negative (NEGATIVE) 08/29/17 17:10 U Oth Cocaine Metabols Negative (NEGATIVE) 08/29/17 17:10 U Cannabinoids Screen Negative (NEGATIVE) 08/29/17 17:10 Attending/Attestation - Attestation I have personally seen and examined this patient.: Yes I have fully participated in the care of the patient.: Yes I have reviewed all pertinent clinical information, including history, physical exam and plan: Yes
[2017-08-30 12:17] VITALS: BP 105/55; PULSE 59; TEMP 98.1; O2SAT 97
--- NOTE | 2017-08-31 12:53 | CARD ---
APPROVED REPORT EKG Measurement Heart [id number] MD [id number] <Conclusion> Sinus bradycardia Otherwise normal ECG
== END 2017-08-30 14:51 | disposition home or self-care (01) ==
LOC: H.ER 09:05 → H.ERHOLD 12:25 → H.TEL 15:32
PROVIDERS: ADMIT Family Medicine Geriatric Medicine; ATTEND Family Medicine Geriatric Medicine
DX: R55 Syncope and collapse (principal); M25.561 Pain in right knee; N40.0 Benign prostatic hyperplasia without lower urinary tract symptoms; R73.03 Prediabetes; F41.9 Anxiety disorder, unspecified; F32.9 Major depressive disorder, single episode, unspecified; G47.00 Insomnia, unspecified; F17.210 Nicotine dependence, cigarettes, uncomplicated
CPT/HCPCS: 36415; 70450; 70486; 72125; 73564; 73700; 80053; 80324; 80345; 80346; 80349; 80353; 80358; 80361; 83992; 84484; 85025; 85610; 85730; 93005; 96360; 96372; 99285; G0378; J1650; J7030